=== PATIENT | male | born 1965 | race Caucasian/White ===

== ENCOUNTER 2017-08-19 22:05 | Emergency (ER) | payer OTHER, BC ==
[~2017-08-19] VITALS: Ht 188 cm; Wt 88.5 kg
[~2017-08-19 22:05] MED LIST: Bactrim Ds Tab1 EACH PO; NAPR550 PO; OXYACE5T PO; Silvadene20 GM TOP
[2017-08-19] MEDS ORDERED: ERYT1OIN LEFTEYE (22:43)
== END 2017-08-19 23:20 | disposition home or self-care (01) ==
LOC: ER 22:05
DX: S05.02XA Injury of conjunctiva and corneal abrasion without foreign body, left eye, initial encounter (principal); W22.8XXA Striking against or struck by other objects, initial encounter; Y99.0 Civilian activity done for income or pay
CPT/HCPCS: 99283